=== PATIENT | female | born 1970 | race Caucasian/White ===

== ENCOUNTER → 2023-07-01 | Outpatient (CLI) | payer OTHER ==
--- NOTE | 2023-07-01 10:45 | XR ---
EXAMINATION TYPE: XR cervical spine comp DATE OF EXAM: 07/01/2023 COMPARISON: NONE HISTORY: Pain TECHNIQUE: Four views are submitted. FINDINGS: The odontoid is intact. There are no compression deformities. The prevertebral soft tissue structur es are within normal limits. Lung apices are clear. There is moderate degenerative disc disease C5-C 6 and C6-C7. There is Mild changes C3-4, C4-5. Multilevel facet arthropathy. Grade 1 anterior listhes is C2-3, C3-4 and there straightening of the cervical spine. Foraminal encroachment C5-6 and C6-C7. IMPRESSION: 1. Multilevel degenerative disc disease most marked at C5-6 and C6-C7 with suspected foraminal encroa chment recommend MRI..
--- NOTE | 2023-07-01 10:47 | XR ---
EXAMINATION TYPE: XR chest 2V DATE OF EXAM: 07/01/2023 COMPARISON: NONE TECHNIQUE: PA and lateral views submitted. HISTORY: Pain FINDINGS: The lungs are clear and there is no pneumothorax, pleural effusion, or focal pneumonia. Heart size normal and no overt failure. Osseous structures demonstrate hypertrophic and degenerative changes of the spine. Hyperinflation suggests COPD. IMPRESSION: 1. No acute process.
--- NOTE | 2023-07-01 10:48 | XR ---
EXAM TYPE: LUMBAR SPINE X RAY SERIES COMPARISON: NONE HISTORY: Pain TECHNIQUE: 3 views are submitted. FINDINGS: Alignment is anatomic. The pedicles are intact. The transverse processes are intact. There is mult ilevel hypertrophic and degenerative change with mild degenerative disc disease L4-5 and L5-S1. Facet arthropathy at these levels with grade 1 anterolisthesis L4-L5. Bilateral SI joint arthropathy. IMPRESSION: 1. Grade 1 anterolisthesis L4-L5 with facet arthropathy and mild degenerative disc disease. 2. Facet arthropathy, suspect foraminal encroachment and mild degenerative disc disease L5-S1
--- NOTE | 2023-07-01 10:49 | XR ---
EXAMINATION TYPE: XR thoracic spine complete DATE OF EXAM: 07/01/2023 COMPARISON: NONE HISTORY: Pain TECHNIQUE: 3 views submitted FINDINGS: Alignment is anatomic. There is no compression deformities. Multilevel mild to moderate hypertrophic and degenerative disc disease. IMPRESSION: 1. Multilevel [id number] degenerative disc disease.
== END | disposition home or self-care (01) ==
LOC: RADXRMAIN 09:58
PROVIDERS: ATTEND Emergency Medicine
DX: S13.4XXA Sprain of ligaments of cervical spine, initial encounter (principal); S23.3XXA Sprain of ligaments of thoracic spine, initial encounter; S39.012A Strain of muscle, fascia and tendon of lower back, initial encounter; S29.001A Unspecified injury of muscle and tendon of front wall of thorax, initial encounter; X58.XXXA Exposure to other specified factors, initial encounter
CPT/HCPCS: 71046; 72050; 72072; 72100

== ENCOUNTER → 2023-07-15 | Outpatient (CLI) | payer OTHER ==
--- NOTE | 2023-07-16 13:10 | MR ---
EXAMINATION TYPE: MR cervical spine wo con DATE OF EXAM: 07/15/2023 9:56 PM CLINICAL INDICATION:Female, 53 years old with history of S13.4XXD; PHH, Neck Pain into Right shoulder /arm/fingers, Tingling in Rt fingers COMPARISON: None. TECHNIQUE: Multi planar, multi sequence imaging was performed utilizing: T1-weighted, T2-weighted, an d turbo inversion recovery imaging of the cervical spine. IV Contrast: cc (none if empty) FINDINGS: Alignment: The cervical vertebral bodies have preserved heights. Alignment is within normal limits gi tati patient positioning. Bones: Degeneration with osteophytes and disc space narrowing. Multilevel degenerative disc disease i s noted and most pronounced at the C5-C7 vertebral levels. Cord: The spinal cord is unremarkable with regards to their signal intensity and morphology. Discs: Multilevel disc desiccation is present. C2-C3: No significant disc pathology. The spinal canal is patent. No neural foraminal stenosis. C3-C4: No significant disc pathology. The spinal canal is patent. No neural foraminal stenosis. C4-C5: No significant disc pathology. The spinal canal is patent. Bilateral facet and uncovertebral joint arthropathy are present with and moderate right and mild left neural foraminal stenosis. C5-C6: A disc osteophyte complex is present which minimally narrows the ventral subarachnoid space. Bilateral facet and uncovertebral joint arthropathy are present with mild bilateral neural foraminal stenosis. C6-C7: No significant disc pathology. The spinal canal is patent. Bilateral facet and uncovertebral joint arthropathy are present with mild bilateral neural foraminal stenosis. C7-T1: No significant disc pathology. The spinal canal is patent. No neural foraminal stenosis. Other: None. IMPRESSION: 1. No evidence for disc herniation or significant spinal canal stenosis. 2. Mild disc degeneration with associated osteoarthritic changes. No significant neural foraminal megan nosis. No foraminal stenosis worse on the right at C4-C5 with moderate.
== END | disposition home or self-care (01) ==
LOC: RADMRIMAIN 21:45
PROVIDERS: ATTEND Emergency Medicine
DX: S13.4XXD Sprain of ligaments of cervical spine, subsequent encounter (principal); M50.322 Other cervical disc degeneration at C5-C6 level; M47.812 Spondylosis without myelopathy or radiculopathy, cervical region
CPT/HCPCS: 72141

== ENCOUNTER → 2023-07-23 | Outpatient (CLI) | payer OTHER ==
--- NOTE | 2023-07-24 06:15 | MR ---
EXAMINATION TYPE: MR lumbar spine wo con DATE OF EXAM: 07/23/2023 COMPARISON: Lumbar spine x-ray July 01, 2023 HISTORY: Low back pain that radiates down right leg due to lifting injury at work. TECHNIQUE: Multiplanar, multisequence imaging of the lumbar spine is performed without IV contrast. FINDINGS: Sagittal images of the lumbar spine show vertebral body heights and alignment to appear sat isfactory. There is disc desiccation at L4-L5 and L5-S1 levels. Disc space heights are fairly well-pr eserved.. The conus medullaris is normal in position and signal ending at mid L1 level. The bone ma rrow signal intensity is within normal limits. Axial images show T12-L1 through L3-L4 levels to appear within normal limits. Axial images at L4-L5 level shows mild broad-based posterior disc protrusion effacing the anterior th ecal sac along with mild to moderate facet arthropathy and ligamentum flavum hypertrophy minimally ef facing the posterior lateral thecal sac. There is mild right greater than left bilateral anterior inf erior neural foraminal narrowing. Axial images at L5-S1 levels show [id number] facet arthropathy bilaterally. There is focal left paracentral disc protrusion seen best sagittal image 8. This effaces the lateral recess and it is in close proximity to the central left S1 nerve. Bilateral neural foramina are patent. There is partial visualization of cystic lesion in the left upper pelvis and left axial images corres ponding to sagittal image 3. IMPRESSION: Multilevel degenerative change in the lower lumbar spine as detailed above. No suspicious findings seen to account for patient's right-sided radiculopathy type symptoms. There is at least 3. 6 cm cystic lesion in the left upper pelvis presumed ovarian in etiology. Advise pelvic ultrasound fo llow-up to further evaluate and characterize.
== END | disposition home or self-care (01) ==
LOC: RADMRIMAIN 16:41
PROVIDERS: ATTEND Emergency Medicine
DX: S39.012D Strain of muscle, fascia and tendon of lower back, subsequent encounter (principal); M47.816 Spondylosis without myelopathy or radiculopathy, lumbar region
CPT/HCPCS: 72148

== ENCOUNTER → 2023-09-22 | Outpatient (CLI) | payer OTHER ==
[2023-09-22 10:35] VITALS: BP 142/78; PULSE 78; RESP 15; TEMP 98.6
--- NOTE | 2023-09-22 14:20 | P.PAINPG ---
PQRS Measure Charge Sheet Comment: HISTORY OF PRESENT ILLNESS: A 53 yr old female as a referral from Dr Maxwell presents today w severe and chronic neck pain x 3 mo secondary to DDD, spondylosis and facet arthropathy without myelopathy for evaluation. Pt states pain level is provoked at 6/10 in intensity, constant, localized in the cervical spine, predominantly axial, tingling in character w occasional shooting pain towards RUE and fingers. Pain is provoked by non activity. Pain is alleviated by PT x 3 wks which she is currently in, heat, medications (Tyl), THC gummies, repositioning and rest. Cervical disability score at 22. PMH: OA, HTN, NIDDM II PSH: C- section x2 SH: Hx of tobacco use, Rare ETOH use, No illicit drug use. Works as [employer] x 30 yrs. FH: DM, CA. All: See list Meds: See list REVIEW OF ORGAN SYSTEMS: CONSTITUTIONAL: No fevers or chills. No recent weight loss. NEUROLOGICAL: + numbness and tingling along the distal extremities. No seizure disorders or headaches. MUSCULOSKELETAL: + pain PSYCHIATRIC: Denies current depression or suicidal thoughts. Physical Examinations : Constitutional : Cooperative , not in acute distress . Neurologic : Cranial nerve II to XII intact. No focal neurological deficits. Psychiatric : alert & oriented x 3. Matching mood & appropriate affect. Judgment & insight intact. Musculoskeletal : Cervical Spine Motor strength in the deltoid and biceps: Normal right side. Normal Left side Motor strength biceps and the wrist extensors: Normal right side . Normal left side Motor strength in the triceps muscle: Normal right side. Normal left side Deep tendon reflexes: Normal at the biceps. Normal at Brachioradialis. Normal at triceps Vertebral body tenderness to deep palpation over C5 Cervical facet loading test: positive bilaterally Spurling test: positive R C4-C5 Neck distraction test: positive bilaterally Janell sign: positive bilaterally Lumbar spine Motor strength lower extremities ,thigh and legs 5/5 Right side , 5/5 Left side Deep tendon reflexes : Normal Knee Jerk. Normal Ankle Jerk Vertebral body tenderness over Orellana Test positive Lumbar facet Loading Test: positive Right / positive Left Range of motion of the lumbar spine Flexion 30 degrees, extension 10 degrees Straight Leg Raise test: Left/ Right positive at degrees Meredith test: positive right / positive left. Severe tenderness over the Sacroiliac joint on the Right / Left sides Gaenslen test: positive bilaterally Seated flexion test: positive bilaterally. Sacral spine : Severe tenderness over the Sacroiliac joint: right side / left side Range of motion: Flexion of the lumbar spine <60 degrees Range of motion: Extension of the lumbar spine <20 degrees Gaenslen's Test positive Meredith test: positive right side / left side Thigh Thrust Test Sacral Thrust Test Imaging: CT noncontrast of the cervical spine from 07/10/23 reviewed Assessment/ Plan : Cervical DDD Recommendation of R TFESI C4-C5 #1. May need a series of injections for optimal pain relief. Risks, benefits of procedure discussed and patient verbalized understanding. Admits to anti- coagulant use or medical history of diabetes. Protocol for discontinuation/ continuation of medications ledy procedure discussed. All questions answered. I have spent greater than 30 minutes on patient care today. Dr Hui was available by phone for the evaluation of this patient. The time was used to review the medical records including relevant urine studies and Prescription history (MAPs), review of the available imaging, evaluation and examination of the patient, coordination of care with the medical staff and if applicable referring physicians, as well as creation of the medical record Controlled Substance Measures - Controlled Substance Measures Is patient prescribed a controlled substance at discharge?: No
== END ==
LOC: PNWHC3 09:29
PROVIDERS: ATTEND Specialist
DX: M50.121 Cervical disc disorder at C4-C5 level with radiculopathy (principal); M47.22 Other spondylosis with radiculopathy, cervical region; M19.90 Unspecified osteoarthritis, unspecified site; I10 Essential (primary) hypertension; E11.9 Type 2 diabetes mellitus without complications; Z87.891 Personal history of nicotine dependence
CPT/HCPCS: 99211

== ENCOUNTER 2023-09-29 08:05 | Day surgery (SDC) | payer OTHER ==
[2023-09-29 08:46] VITALS: TEMP 97.5
[2023-09-29 08:46] LABS: Glucose,Whole Blood 147 mg/dL (70-110)
[2023-09-29] MEDS ORDERED: IOPAMIDOL M200 10 ML VIAL ONE (09:00)
[2023-09-29] MEDS ORDERED: DEXAMETHASONE SOD PHOSPHATE 10 MG/ML 1 ML VIAL ONE (09:00)
--- NOTE | 2023-09-29 09:12 | P.PCN ---
Date of Procedure: 09/29/23 Procedure(s) Performed: PREOPERATIVE DIAGNOSIS: 1-cervical radiculopathy . 2-cervical degenerative disc disease. 3-cervical foraminal stenosis POSTOPERATIVE DIAGNOSIS: Same as preop diagnosis PROCEDURE 1. Transforaminal epidural steroid injection under fluoroscopic guidance at right C4-5 level. (Fluoroscopy images stored on file in the radiology Department ) 2. Cervical epidurogram . ANESTHESIA: Local with 1% lidocaine 3 ml. EBL: Minimal PROCEDURE INDICATION: The patient with low back pain and radiculopathy symptoms unresponsive to conservative treatment. PROCEDURE DESCRIPTION / TECHNIQUE: The patient was seen and identified in the preoperative area. Risks, benefits, complications, and alternatives were discussed with the patient. The patient agreed to proceed with the procedure and signed the consent, and vital signs were stable. Patient was taken to the OR and time out was completed. The patient was placed in the Lateral position on procedure table . Theright cervical area was prepped and draped in the usual sterile fashion. Critical pause was taken. Vital signs were closely monitored during the procedure. Using oblique fluoroscopy, the chin of the `Betzy dog atRight C 4-5 level was identified, and the skin and deeper tissues just below was localized with 1% lidocaine. Subsequently, a 22-gauge 3.5-inch spinal needle was advanced under a tunneled view fluoroscopic guidance just underneath the chin of the `Kathyy dog at the right C4-5 Under lateral fluoroscopy, the needle was then advanced to the posterior border of the interforaminal space. After negative aspiration of CSF and blood and with no paresthesias, 1 mL Isovue 200 contrast dye was injected excellent epidurogram and outlining of the nerve root Subsequently, 2 mL of block solution containing 20 mg Dexamethasone PF was injected. Needle was removed . At the end of the procedure, skin was cleansed, and bandages were applied. COMPLICATIONS:none DISPOSITION / PLANS: The patient was placed in a supine position and transferred to the recovery area in a stable condition for observation. There was no evidence of lower extremity motor or sensory deficit after the procedure. Patient was discharged from the recovery room after meeting discharge criteria. Home discharge instructions were given to the patient by the staff. The patient was reexamined prior to discharge.
[2023-09-29 09:19] VITALS: RESP 20
[2023-09-29 10:04] VITALS: BP 112/76; PULSE 75
--- NOTE | 2023-09-29 10:50 | FL ---
EXAMINATION TYPE: FL guided pain mgmt statistic Intraoperative/procedural fluoroscopic services were provided. Total fluoroscopy time is 15.1 seconds with a total of 2 submitted images to PACS. Please s ee the operative/procedural note for further details. DAP: [id number]
== END 2023-09-29 09:39 | disposition home or self-care (01) ==
LOC: ORPAIN 08:05
PROVIDERS: ATTEND Specialist
DX: M50.121 Cervical disc disorder at C4-C5 level with radiculopathy (principal); M48.02 Spinal stenosis, cervical region; E11.9 Type 2 diabetes mellitus without complications
CPT/HCPCS: 64479; J1100; Q9966; 64483